=== PATIENT | female | born 1980 | race Caucasian/White ===

== ENCOUNTER 2020-12-16 06:27 | Day surgery (SDC) | payer BC ==
[2020-12-15 15:32] LABS: Absolute Lymphocytes (CBC) 2.6 K/uL (0.7-4.9); Basophils % 0.6 % (0-1.3); Hematocrit 39.4 % (36.0-45.0); Lymphocytes % 31.9 % (15.3-44.8); MPV 8.4 fL (7.6-11.3); RBC Red Blood Cell Count 4.39 M/uL (3.86-4.86)
[2020-12-15 15:46] LABS: ALT/SGPT 23 U/L (12-78); AST/SGOT 11 U/L (15-37); Albumin 3.9 g/dL (3.4-5.0); Alkaline Phosphatase 114 U/L (45-117); Amylase 44 U/L (25-115); BUN Blood Urea Nitrogen 9 mg/dL (7-18); Bicarbonate 28 mmol/L (21-32); Bilirubin Direct < 0.1 mg/dL (0-0.2); Bilirubin Total 0.2 mg/dL (0.2-1.0); Glucose Level 108 mg/dL (74-106); Lipase 245 U/L (73-393); Potassium 3.6 mmol/L (3.5-5.1); Protein, Total 7.7 g/dL (6.4-8.2); Sodium Level 139 mmol/L (136-145)
[2020-12-16] MEDS ORDERED: Ringers Lactate 1,000 ML IV ONE (07:12)
[2020-12-16] MEDS ORDERED: KETOROLAC 30 MG/ML INJ ONE (07:37)
[2020-12-16] MEDS ORDERED: MIDAZOLAM HCL 2 MG/2 ML INJ ONE (07:37)
[2020-12-16] MEDS ORDERED: ROCURONIUM 50 MG/5 ML VIAL IV ONE (07:37)
[2020-12-16] MEDS ORDERED: LIDOCAINE 1% MPF 5 ML VIAL ONE (07:37)
[2020-12-16] MEDS ORDERED: propofoL 200 MG/20 ML VIAL IV ONE (07:37)
[2020-12-16] MEDS ORDERED: ONDANSETRON 4 MG/2 ML VIAL ONE (07:37)
[2020-12-16] MEDS ORDERED: FENTANYL CITR 100 MCG/2 ML ONE (07:37)
[2020-12-16] MEDS ORDERED: dexAMETHasone 10 MG/ML VIAL ONE (07:37)
[2020-12-16] MEDS ORDERED: SCOPOLAMINE HYDROBROMIDE PATCH TD ONE (08:28)
[2020-12-16] MEDS ORDERED: CIPROFLOXACIN 400mg IV 400 MG/200 ML BAG IV ONE (10:41)
[2020-12-16] MEDS ORDERED: GLYCOPYRROLATE 0.2 MG/ML SYR ONE ×2 (11:16→11:30)
[2020-12-16] MEDS ORDERED: NEOSTIGMINE 1 MG/ML -5 ML ONE (11:35)
[2020-12-16] MEDS ORDERED: PROMETHAZINE INJ 25 MG/ML AMP ONE (12:19)
[2020-12-16 12:22] VITALS: O2SAT 98
[2020-12-16 13:23] VITALS: BP 104/73; TEMP 97.6
[2020-12-16] MEDS ORDERED: CODEINE 30MG/APAP 300MG TAB ONE (14:13)
--- NOTE | 2020-12-16 18:18 | OP ---
Date of Procedure: 12/16/2020 Surgeon: Shantanu Fried MD Preoperative Diagnoses: Symptomatic cholelithiasis, acute cholecystitis. Postoperative Diagnoses: Symptomatic cholelithiasis, acute cholecystitis. Procedure: Laparoscopic cholecystectomy. Anesthesia: General plus local. Indications: This is the case of a 40-year-old patient with above diagnosis. Fully explained the be nefits, alternatives, and risks of laparoscopic possible open cholecystectomy, which include, but not limited to infection, bleeding, damage to adjacent structures, anesthesia complication, choledocholi thiasis, bile leak, pancreatitis, [place], and even . She also understands this may not relieve any symptoms. She might need more than one surgical intervention. She understood, signed a consent. Procedure In Detail: The patient was brought to the operating room, placed in supine position. Anes thesia was done without complication. Abdominal area was prepped and draped in usual sterile fashion . Marcaine 0.5% was injected for local anesthetic followed by sharp incision of the skin in the infr aumbilical region. Incision was carried down to fascia, which was opened under direct vision. Perit oneum was encountered, opened under direct vision. Vicryl #1 placed inside the fascia. Kavita troca r was carefully introduced. Pneumoperitoneum was obtained. I placed 3 more trocars, 5 mm each one o f them in the right upper quadrant under direct visualization. This allowed me to put a grasper in t he fundus of the gallbladder and another grasper in the infundibulum retracting the gallbladder in th e inferolateral fashion, exposing the triangle of Calot and obtaining critical view. Cystic duct and cystic artery were clearly isolated, free circumferentially and a connection between those and the g allbladder were clearly identified. I proceeded to ligate those by using at least 3 clips proximal, 1 clip distal, 1 clip distal, ligation in middle. Same was done with the cystic artery. No bile pepe k, no bleeding. The gallbladder was removed from liver using Bovie cauterizer and removed from abdom inal cavity using EndoCatch through the umbilical incision. The area was inspected once again. No b ile leak, no bleeding. Clips were intact. At that moment, I proceeded to remove the trocars under d irect vision. Deflated pneumoperitoneum, closed the fascia with #1 Vicryl. Irrigated subcutaneous t issue, closed with 3-0 chromic and skin in a subcuticular fashion with 3-0 chromic and Steri-Strips o n top. Sponge count and instrument counts correct. The patient tolerated the procedure well. [facility]. JUSTIN/SARAHI Voice ID: [id number] Report ID: [id number]
--- NOTE | 2020-12-16 18:24 | DS ---
Date of Discharge: 12/16/2020 Diagnoses: Symptomatic cholelithiasis, cholecystitis, right upper quadrant abdominal pain. Procedure: Laparoscopic cholecystectomy. Disposition: Home. Activity: As tolerated. No heavy lifting. Plan: Follow up in my office in 1 week. Call for appointment at [phone]. Keep area dry for 48 hayes rs, then may shower. Keep Steri-Strips intact. Medications: See orders. JUSTIN/MODL Voice ID: [id number] Report ID: [id number]
== END 2020-12-16 14:52 | disposition home or self-care (01) ==
LOC: OR 06:27
PROVIDERS: ATTEND Surgery
PROC: 0FT44ZZ Resection of Gallbladder, Percutaneous Endoscopic Approach (ICD-10-PCS; principal; 2020-12-16 07:30)
DX: K80.10 Calculus of gallbladder with chronic cholecystitis without obstruction (principal); F41.8 Other specified anxiety disorders; R10.11 Right upper quadrant pain; Z20.822 Contact with and (suspected) exposure to COVID-19
CPT/HCPCS: 85025; 80048; 36415; 82150; 80076; 88304; 83690; 47562; U0003; J2704; J2550; J2250; J3010; J1100; J2710; J7120; J2405; J0744